=== PATIENT | female | born 1995 | race Caucasian/White ===

== ENCOUNTER 2016-09-04 21:51 | Outpatient (CLI) | payer OTHER ==
[~2016-09-04] VITALS: Ht 157.5 cm; Wt 66.8 kg
[2016-09-04 22:20] VITALS: BP 131/81; PULSE 116; TEMP 98.2
[2016-09-04 22:30] VITALS: BP 131/81; PULSE 116; TEMP 98.2
[2016-09-04 23:00] VITALS: BP 116/72; PULSE 107
[2016-09-04 23:19] VITALS: BP 112/69; PULSE 88
[2016-09-04] MEDS ORDERED: PRENATAL PO (23:29)
== END 2016-09-04 23:40 | disposition home or self-care (01) ==
LOC: LDRO 21:51
DX: O62.9 Abnormality of forces of labor, unspecified (principal); Z3A.39 39 weeks gestation of pregnancy

== ENCOUNTER 2016-09-14 06:41 | Inpatient (IN) | payer OTHER ==
[~2016-09-14] VITALS: Ht 157.6 cm; Wt 67.3 kg
[2016-09-14] VITALS (55 sets, daily range): BP systolic 96–135; BP diastolic 52–88; PULSE 25–137; TEMP 97.7–98.9
[~2016-09-14 06:41] MED LIST: PRENATAL PO
[2016-09-14 07:21] LABS: BASO % 0.3 % (0.0-2.0); EOS # 0.1 (0.0-0.7); EOS % 0.9 % (0-4.0); GRAN # 4.9 (1.4-6.5); GRAN % 64.9 % (42.2-75.2); LYMPH # 1.8 (1.2-3.4); MEAN CELL VOLUME 88 fl (80.0-95.0); MEAN CORPUSCULAR HGB CONC 33 g/dl (33.0-37.0); MEAN PLATELET VOLUME 12.1 fl (7.4-10.4); MONO # 0.7 (0.1-0.6); MONO % 8.8 % (1.7-9.3); PLATELET COUNT 186 K/mm3 (130-400); RED BLOOD COUNT 4.01 M/mm3 (4.10-5.30); REDCELL DISTRIBUTION WIDTH-CV 12.9 % (11.5-14.5); WHITE BLOOD COUNT 7.5 K/mm3 (4.8-10.8)
[2016-09-14 07:23] LABS: HEMATOCRIT 35.1 % (35.0-45.0); HEMOGLOBIN 11.6 g/dl (12.0-15.0); MEAN CORPUSCULAR HEMOGLOBIN 29 pg (26.0-32.0)
[2016-09-15 00:15] VITALS: BP 11/66; PULSE 83; TEMP 98
[2016-09-15 05:37] VITALS: BP 105/66; PULSE 96; TEMP 97.9
[2016-09-15 07:44] LABS: BASO % 0.2 % (0.0-2.0); EOS % 0.3 % (0-4.0); GRAN # 8.1 (1.4-6.5); GRAN % 78.4 % (42.2-75.2); LYMPH # 1.3 (1.2-3.4); LYMPH % 12.3 % (20.0-51.0); MEAN CELL VOLUME 90 fl (80.0-95.0); MEAN CORPUSCULAR HGB CONC 33 g/dl (33.0-37.0); MEAN PLATELET VOLUME 12.3 fl (7.4-10.4); MONO # 0.9 (0.1-0.6); MONO % 8.3 % (1.7-9.3); PLATELET COUNT 130 K/mm3 (130-400); RED BLOOD COUNT 3.05 M/mm3 (4.10-5.30); REDCELL DISTRIBUTION WIDTH-CV 13.1 % (11.5-14.5); WHITE BLOOD COUNT 10.4 K/mm3 (4.8-10.8)
[2016-09-15 07:48] LABS: HEMATOCRIT 27.4 % (35.0-45.0); HEMOGLOBIN 9.1 g/dl (12.0-15.0); MEAN CORPUSCULAR HEMOGLOBIN 30 pg (26.0-32.0)
[2016-09-15 08:00] VITALS: BP 102/70; PULSE 82; TEMP 97.9
[2016-09-15 21:00] VITALS: BP 106/61; PULSE 105; TEMP 98.3
[2016-09-16 07:32] VITALS: BP 115/59; PULSE 102; TEMP 97.7
[2016-09-16] MEDS ORDERED: IBU600 MG PO (08:55)
[2016-09-16] MEDS ORDERED: PERCOCET 325 MG1 TA2 PO (08:56)
== END 2016-09-16 12:10 | disposition home or self-care (01) | DRG 766 ==
LOC: OB 06:41 → LDR 06:41 → OB 09:03
PROVIDERS: Obstetrics & Gynecology
PROC: 10D00Z1 Extraction of Products of Conception, Low, Open Approach (ICD-10-PCS; principal; 2016-09-14)
PROC: 3E033VJ Introduction of Other Hormone into Peripheral Vein, Percutaneous Approach (ICD-10-PCS; 2016-09-14)
DX: O48.0 Post-term pregnancy (principal); O76 Abnormality in fetal heart rate and rhythm complicating labor and delivery; O62.0 Primary inadequate contractions; Z3A.41 41 weeks gestation of pregnancy; Z37.0 Single live birth
CPT/HCPCS: J0690; J1885; J2270; J2370; J2400; J2405; J2590; J7120

== ENCOUNTER 2018-05-19 16:06 | Inpatient (IN) | payer MEDICAID ==
[~2018-05-19] VITALS: Ht 157.5 cm; Wt 67.3 kg
[~2018-05-19 16:06] MED LIST changes: +IBU600 MG PO; +PERCOCET 325 MG1 TA2 PO
[2018-06-09] VITALS (22 sets, daily range): BP systolic 90–126; BP diastolic 50–79; PULSE 75–125; TEMP 97.5–98
--- NOTE | 2018-06-09 06:00 | NUR ---
0530- Patient ambulatory to 210 with , Abran. Patient into restroom to change into gown. 0550- EFM and TOCO on and tracing. Patient positioned WL. 0600- IV started. LR infusing. Consents signed.
--- NOTE | 2018-06-09 06:20 | NUR ---
0620-Recieved report from DANDY Wisdom. Patient remians on EFM. Reactive FHR. No contractions. Updated on plan of care. Assessment complete. 0647-4mg Zofran given, See EMAR 0650-20mg Pepcid given, see EMARSravani Myers CRNA to patient room. 0715-Ambulatory to OR with spouse.
[2018-06-09 06:44] LABS: BASO % 0.4 % (0.0-2.0); EOS % 0.7 % (0-4.0); GRAN # 3.3 (1.4-6.5); GRAN % 58.6 % (42.2-75.2); HEMATOCRIT 36.1 % (37.0-47.0); HEMOGLOBIN 11.4 g/dl (12.5-16.0); LYMPH # 1.7 (1.2-3.4); LYMPH % 30.1 % (20.0-51.0); MEAN CELL VOLUME 87 fl (80.0-100.0); MEAN CORPUSCULAR HEMOGLOBIN 27 pg (27.0-31.0); MEAN CORPUSCULAR HGB CONC 32 g/dl (33.0-37.0); MONO # 0.5 (0.1-0.6); MONO % 9.7 % (1.7-9.3); PLATELET COUNT 154 K/mm3 (130-400); RED BLOOD COUNT 4.17 M/mm3 (4.10-5.30); REDCELL DISTRIBUTION WIDTH-CV 14.8 % (11.5-14.5)
--- NOTE | 2018-06-09 08:25 | NUR ---
0825-Patient to PACU via bed. A&O x4. Recieved report from NICOLE Myers. Dr. Jerome in to see patient. VSS, See PACU flow record. IVF to L hand. Spangler to DD with clear yellow urine. Abdominal binder to abdomen, removed, Dressing C/D/I, fundal massage firm. Small amount of free flow and small dime to quarter size clot. Analilia pad changed. Updated on plan of care. Assessment complete. Spouse at bedside.
[2018-06-09] MEDS ORDERED: PERCOCET 325 MG1 TA2 PO (11:43)
[2018-06-09] MEDS ORDERED: MOTRIN 800800 MG/TAB PO (11:43)
--- NOTE | 2018-06-09 15:30 | NUR ---
1530 1500ML CLEAR YELLOW FLUID DRAINED FROM NICOLE. BALLOON DEFLATED WITH 9MLS. NICOLE REMOVED. TOLERATED WELL. PATIENT AMBULATED X 1 SBA TO BATHROOM. TOLERATED WELL. MICHELL CARE PROVIDED. ABDOMINAL BINDER REMOVED FOR NOW PER PT REQUEST. PATIENT AMBULATED AROUND ROOM AND BACK TO BED INDEPENDENTLY. EDUCATED ON VOIDING. TO CALL IF NEED HELP. IN ROOM. PATIENT STATES UNDERSTANDING. TOLERATED ALL WELL. DENIES NEEDS.
[2018-06-10 00:45] VITALS: BP 103/59; PULSE 90; TEMP 98
[2018-06-10 07:00] VITALS: BP 104/63; PULSE 95; TEMP 97.9
--- NOTE | 2018-06-10 10:48 | NUR ---
Visitid with the patient and gave congratulations on the new baby.
[2018-06-10 16:26] VITALS: BP 117/66; PULSE 99; TEMP 98.2
[2018-06-10 20:30] VITALS: BP 107/70; PULSE 96; TEMP 98.4
[2018-06-11 10:00] VITALS: BP 104/68; PULSE 96; TEMP 97.7
== END 2018-06-11 11:55 | disposition home or self-care (01) | DRG 788 ==
LOC: OB 06-09 05:22 → LDR 06-09 06:35 → OB 06-11 11:55
PROVIDERS: ADMIT Obstetrics & Gynecology
PROC: 10D00Z1 Extraction of Products of Conception, Low, Open Approach (ICD-10-PCS; principal; 2018-06-09)
DX: O34.211 Maternal care for low transverse scar from previous cesarean delivery (principal); N85.8 Other specified noninflammatory disorders of uterus; Z3A.39 39 weeks gestation of pregnancy; Z37.0 Single live birth; O99.02 Anemia complicating childbirth
CPT/HCPCS: J0690; J1885; J2370; J2405; J2590; J3010; J7120